=== PATIENT | female | born 1945 | race Caucasian/White ===

== ENCOUNTER 2017-05-10 09:21 | Emergency (ER) | payer MEDICARE ==
[~2017-05-10] VITALS: Ht 160 cm; Wt 79.5 kg
[~2017-05-10 09:21] MED LIST: BENA25TA3 PO; HYDR25TA5 PO; LOSA100T PO; ROSU20 PO
[2017-05-10 09:23] VITALS: BP 169/87; PULSE 94; RESP 20; TEMP 98.7; O2SAT 95
[2017-05-10] MEDS ORDERED: OLIV250C (09:36)
[2017-05-10] MEDS ORDERED: CALC1TAB87 PO (09:37)
[2017-05-10] MEDS ORDERED: FISHCAP4 PO (09:37)
[2017-05-10] MEDS ORDERED: VITA500T49 PO (09:37)
--- NOTE | 2017-05-10 10:26 | PD ---
HPI Chief Complaint: Injury Time Seen by Provider: 10:20 Travel History International Travel<30 days: No Contact w/Intl Traveler<30days: No Traveled to known affect area: No History of Present Illness HPI 71-year-old female complains of left low leg pain and left foot pain. Patient states that she fell and twisted the left low leg and left foot yesterday. Patient denies any other injury. Patient states the pain is sharp pain localized to the dorsal aspect lateral aspect of the left foot and left low leg. Patient denies any pain radiation. Patient states that the pain is worse weightbearing. On a scale of 1-10 the pain is a 7. PFSH Past Medical History Cancer: No Cardiovascular Problems: No Diabetes: No Endocrine: No Genitourinary: No Hepatitis: No Hiatal Hernia: No Hypertension: Yes Immune Disorder: No Musculoskeletal: Yes (BONE SPUR SCIATICA (RIGHT HIP PAIN)) Neurologic: Yes (SPINA MENINGITIS (2 YEARS OLD) CAUSES DIFFICULTY USING STAIRS) Psychiatric: No Reproductive: No Respiratory: Yes (ASTHMA (WEATHER INDUCED)) Thyroid Disease: No Tetanus Vaccination: < 5 Years Influenza Vaccination: Yes ?: Not Past Surgical History Abdominal Surgery: No AICD: No Cardiac Surgery: No Ear Surgery: No Endocrine Surgery: No Eye Surgery: No Genitourinary Surgery: No Gynecologic Surgery: Yes (PARTIAL HYSTERECTOMY) Hysterectomy: Yes Joint Replacement: No Oral Surgery: No Pacemaker: No Thoracic Surgery: No Social History Alcohol Use: Yes (occ) Tobacco Use: No Substance Use: No Allergies-Medications (Allergen,Severity, Reaction): Coded Allergies: Sulfa (Verified Allergy, Severe, Rash, 05/10/17) Reported Meds & Prescriptions Reported Meds & Active Scripts Active [place] (Hydrocodone-Acetaminophen) 5-325 mg Tab 1 Tab PO Q6H PRN Reported Vitamin B12 (Cyanocobalamin) 500 Mcg Tab 500 Mcg PO DAILY Fish Oil + D3 (Fish Oil-Cholecalciferol) 1,200-1,000 Mg-Unit Cap 1 Cap PO DAILY Calcium 600 with Vitamin D (Calcium Carbonate-Cholecalciferol) 600-400 mg-Unit Tab 1 Tab PO DAILY Biscoe Odanah Extract (Biscoe Odanah (Tommy Europaea)) 250 Mg Cap Review of Systems General / Constitutional: No: Fever Eyes: No: Visual changes HENT: No: Headaches Cardiovascular: No: Chest Pain or Discomfort Respiratory: No: Shortness of Breath Gastrointestinal: No: Abdominal Pain Genitourinary: No: Dysuria Musculoskeletal: Positive: Pain Skin: No Rash Neurologic: No: Weakness Psychiatric: No: Depression Endocrine: No: Polydipsia Hematologic/Lymphatic: No: Easy Bruising Physical Exam Narrative GENERAL: Well-nourished, well-developed patient. SKIN: Focused skin assessment warm/dry. HEAD: Normocephalic. EYES: No scleral icterus. No injection or drainage. NECK: Supple, trachea midline. No JVD or lymphadenopathy. CARDIOVASCULAR: Regular rate and rhythm without murmurs, gallops, or rubs. RESPIRATORY: Breath sounds equal bilaterally. No accessory muscle use. GASTROINTESTINAL: Abdomen soft, non-tender, nondistended. MUSCULOSKELETAL: No cyanosis, or edema. BACK: Nontender without obvious deformity. No CVA tenderness. Patient has mild tenderness on palpation lateral aspect left low leg. No tenderness on palpation medial or lateral malleolus. Patient has soft tissue swelling tenderness or some aspect of the left foot including fourth and fifth metatarsal area. Full range of motion of the toes. Data Data Last Documented VS Vital Signs Date Time Temp Pulse Resp B/P Pulse Ox O2 Delivery O2 Flow Rate FiO2 05/10/17 11:12 72 97 Room Air 05/10/17 09:23 98.7 20 169/87 Orders Foot, Complete ([id number]) (05/10/17 10:23) Tibia/Fibula (Ap/Lat) (05/10/17 10:23) Splint Or Brace Apply/Monitor (05/10/17 11:19) MDM Medical Decision Making Medical Screen Exam Complete: Yes Emergency Medical Condition: Yes Interpretation(s) 11:20 AM. X-ray of left tib-fib and left foot shows fracture the base of fifth metatarsal. Differential Diagnosis Differential diagnosis including sprain, fracture, dislocation. Narrative Course 71-year-old female with left low leg and left foot injury. Diagnosis Primary Impression: Fracture of base of fifth metatarsal bone of left foot Qualified Code: S92.352A - Fracture of base of fifth metatarsal bone of left foot, closed, initial encounter Patient Instructions: General Instructions Additional Instructions: Keep legs elevated. Take medication as needed for pain. Follow-up with forex trader or orthopedist. Med/Other Pt SpecificInfo: Prescription(s) given Scripts Hydrocodone-Acetaminophen ([place])5-325 mg Tab1 Tab PO Q6H PRN (PAIN) #30 TAB Prov:Carlos Dolan MD 05/10/17 Disposition: 01 DISCHARGE HOME Condition: Stable Carlos Dolan MD May 10, 2017 10:26
[2017-05-10 11:12] VITALS: PULSE 72; O2SAT 97
--- NOTE | 2017-05-10 11:20 | RADRPT ---
EXAM DATE/TIME: 05/10/2017 10:49 [facility] COMPARISON: No previous studies available for comparison. INDICATIONS : Left foot pain across heads of metatarsals post fall. MEDICAL HISTORY : None. SURGICAL HISTORY : None. ENCOUNTER: Initial ACUITY: 1 day PAIN SCORE: 8/10 LOCATION: Left Foot FINDINGS: There is an acute fracture involving the base of the left fifth metatarsal. Tiny plantar and Achilles calcaneal spurs are noted. Mild degenerative changes are noted involving the left first metatarsopha langeal joint. CONCLUSION: 1. Acute fracture involving the base of the left fifth metatarsal. 2. Tiny plantar and Achilles calcaneal spurs. 3. Mild degenerative changes involving the left first metatarsophalangeal joint. Ry Urias MD on May 10, 2017 at 11:17 Board Certified Radiologist. This report was verified electronically.
[2017-05-10] MEDS ORDERED: NORC5TAB PO (11:22)
--- NOTE | 2017-05-10 11:52 | RADRPT ---
EXAM DATE/TIME: 05/10/2017 10:55 [facility] COMPARISON: No previous studies available for comparison. INDICATIONS : Left distal tibia pain post fall. MEDICAL HISTORY : None. SURGICAL HISTORY : None. ENCOUNTER: Initial ACUITY: 1 day PAIN SCORE: 8/10 LOCATION: Left Tibia FINDINGS: Moderate osteoarthritis is noted involving the femoral tibial joint. There is no acute fracture or d islocation of the tibia or fibula. Minimal spurring is noted involving the medial malleolus. Modera te osteoarthritis involving the patellofemoral joint also. CONCLUSION: 1. 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 2. Spurring involving the medial malleolus. 3. No acute fracture or dislocation. Ry Urias MD on May 10, 2017 at 11:20 Board Certified Radiologist. This report was verified electronically.
== END 2017-05-10 11:58 | disposition home or self-care (01) ==
LOC: NEPD 09:21
DX: S92.355A Nondisplaced fracture of fifth metatarsal bone, left foot, initial encounter for closed fracture (principal); W18.30XA Fall on same level, unspecified, initial encounter; Y93.9 Activity, unspecified; Y92.9 Unspecified place or not applicable; I10 Essential (primary) hypertension
CPT/HCPCS: 29515; 73590; 73630

== ENCOUNTER → 2017-11-15 | Outpatient (CLI) | payer MEDICARE ==
[~2017-11-15] MED LIST changes: -BENA25TA3 PO; +CALC1TAB87 PO; +CO Q10CA PO; +FISHCAP4 PO; -HYDR25TA5 PO; -LOSA100T PO; +NORC5TAB PO; +OLIV250C; -ROSU20 PO; +VITA500T35 PO
[2017-11-15 09:35] LABS: BLOOD, URINE NEG (NEG); GLUCOSE,URINE NEG (NEG); KETONE, URINE NEG (NEG); MUCUS URINE FEW /lpf (OCC); NITRITE,URINE NEG (NEG); SQUAMOUS EPITHELIAL CELL URINE <1 /hpf (0-5); URINE COLOR YELLOW (YELLW/STRAW)
[2017-11-15 09:37] LABS: COMMENT (UR) CATH-CULT NOT IND; CULTURE IF INDICATED CATH CULTURE NOT IND
[2017-11-15 09:39] LABS: ALKALINE PHOSPHATASE 61 U/L (45-117); ALT (GPT) 24 U/L (10-53); TOTAL BILIRUBIN ADULT 0.4 MG/DL (0.2-1.0)
--- NOTE | 2017-11-15 09:41 | RADRPT ---
EXAM DATE/TIME: 11/15/2017 09:21 [facility] COMPARISON: No previous studies available for comparison. INDICATIONS : Evaluate for pneumonia, pneumothorax or communicable disease. MEDICAL HISTORY : None. SURGICAL HISTORY : None. ENCOUNTER: Initial ACUITY: 1 day PAIN SCORE: 0/10 LOCATION: Bilateral chest FINDINGS: PA and lateral views of the chest demonstrate the lungs to be symmetrically aerated without evidence of mass, infiltrate or effusion. Linear atelectatic changes or scarring in the left lingula. Granulo matous type calcification in the anterior perihilar distribution of a lower segment of the left upper lobe. The cardiomediastinal contours are unremarkable. Osseous structures are intact. CONCLUSION: 1. Linear atelectasis/scar in the left lingula. Lungs are otherwise clear of acute infiltrate. 2. Old granulomatous type calcification in an anterior perihilar distribution of the left upper lobe. Juan Greene MD on November 15, 2017 at 9:37 Board Certified Radiologist. This report was verified electronically.
[2017-11-15 09:49] LABS: ANION GAP 8 MEQ/L (5-15); AST (GOT) 24 U/L (15-37); BICARBONATE 24.8 MEQ/L (21.0-32.0); BLOOD UREA NITROGEN 17 MG/DL (7-18); CHLORIDE 107 MEQ/L (98-107); GLOMERULAR FILTRATION RATE 72 ML/MIN (>89); GLUCOSE,FASTING 112 MG/DL (74-99); POTASSIUM 4.2 MEQ/L (3.5-5.1); SODIUM (NA) 140 MEQ/L (136-145)
[2017-11-15 10:00] LABS: HEMATOCRIT 45.2 % (35.0-46.0); MEAN CELL VOLUME 80.1 FL (80.0-100.0); MEAN CORPUSCULAR HEMOGLOBIN 26.6 PG (27.0-34.0); MEAN CORPUSCULAR HGB CONC 33.1 % (32.0-36.0); PLATELET COUNT 334 TH/MM3 (150-450); RED BLOOD COUNT 5.63 MIL/MM3 (4.00-5.30); RED CELL DISTRIBUTION WIDTH 15.3 % (11.6-17.2); REVIEW FLAG FINAL; WHITE BLOOD COUNT 8.4 TH/MM3 (4.0-11.0)
[2017-11-15 10:09] LABS: APTT (PATIENT) 24.7 SEC (24.3-30.1); PROTHROMBIN TIME - PATIENT 10.4 SEC (9.8-11.6)
--- NOTE | 2017-11-15 16:31 | EKG ---
Date Performed: 11/15/2017 Time Performed: 08:36:54 PTAGE: 72 years EKG: Sinus rhythm Leftward axis Inferior infarct - age undetermined Anterior ST-T changes are nonspecific Low QRS volt ages in precordial leads Abnormal ECG NO PREVIOUS TRACING DOCTOR: Breanna Faria Interpretating Date/Time 11/15/2017 16:30:13
== END ==
LOC: CPRE 07:58
PROVIDERS: ATTEND Surgery
DX: Z01.810 Encounter for preprocedural cardiovascular examination (principal); Z01.811 Encounter for preprocedural respiratory examination; Z01.812 Encounter for preprocedural laboratory examination; Z01.818 Encounter for other preprocedural examination; R94.31 Abnormal electrocardiogram [ECG] [EKG]
CPT/HCPCS: 36415; 71020; 80053; 81001; 85027; 85610; 85730; 93005

== ENCOUNTER 2017-11-23 08:21 | Inpatient (IN) | payer MEDICARE ==
--- NOTE | 2017-11-18 20:44 | MH ---
cc: Tami GABRIEL DATE OF ADMISSION 11/23/2017 ADMISSION DIAGNOSIS Osteoarthritic degeneration right knee now being admitted for right total knee arthroplasty. ADMISSION HISTORY AND PHYSICAL This pleasant 72-year old female is being admitted today for right total knee arthroplasty due to severe painful osteoarthritic degeneration right knee. OTHER PAST HISTORY History of hypertension and she takes Lipitor, Hydrochlorothiazide 12.5 mg tablet a day. She takes ibuprofen stopped before surgery. PAST SURGICAL HISTORY 1. Hysterectomy 2. Tonsillectomy. REVIEW OF SYSTEMS Noncontributory. FAMILY HISTORY Noncontributory. SOCIAL HISTORY She does not smoke or drink. ALLERGIES No known allergies. PHYSICAL EXAMINATION We find a 72-year female well-developed, well-nourished x3 complaining of pain in her right knee. VITAL SIGNS: Blood pressure 122/70, pulse 73 and regular, respirations 16, temperature 97.8, pulse oximetry 92% on room air HEENT: Eyes - PERRLA, EOMI. Ears, nose, mouth clear. NECK: Supple. LUNGS: Clear HEART: Regular rate and rhythm. ABDOMEN: Soft. Positive bowel sounds, nontender. EXTREMITIES: Reveals right knee to be tender, crepitance on range of motion. She is neurovascularly intact to her toes. IMPRESSION AND PLAN Severe painful with osteoarthritic degeneration right knee. PLAN Admission right total knee arthroplasty today. The patient given prescription for postoperative pain and anticoagulation control in the office, plans on going home after stay in the hospital. She states she cannot take [place]. She gets reaction to [place] but can take Percocet. MD LIAM Aviles/ /5:27 PM /8:12 PM
[~2017-11-23] VITALS: Ht 160 cm; Wt 106.0 kg
[~2017-11-23 08:21] MED LIST changes: -FISHCAP4 PO
[2017-11-23] MEDS ORDERED: LACTATED RINGER'S 1000 ML IV PRN (09:00)
[2017-11-23] MEDS ORDERED: SODIUM CHLORID 0.9% 500 ML IV PRN (09:00)
[2017-11-23] MEDS ORDERED: METOPROLOL TARTRATE 25 MG TAB PO PRN (09:00)
[2017-11-23] MEDS ORDERED: CHLORHEXIDINE GLUCONATE 2 % 1 PACK (2 CLOTHS) TOPICAL PRN (09:00)
[2017-11-23] MEDS ORDERED: VANCOMYCIN 1000 MG/NS 250 ML (for <70 kg) IV SCH ×2 (09:00)
[2017-11-23] MEDS ORDERED: POVIDONE IODINE 5% (ANTISEPSIS KIT) 4 APPLICATIONS EACH NARE PRN (09:00)
[2017-11-23] MEDS ORDERED: CHLORHEXIDINE GLUCONATE 4% SOLN 120 ML BTL TOPICAL SCH (09:00)
[2017-11-23] MEDS ORDERED: ceFAZolin 2 GM PREMIX 50 ML IV SCH (09:00)
[2017-11-23] MEDS ORDERED: EXPAREL PERI-ARTICULAR INJECTION (TOTAL VOL. 120 ML) P-ARTICULR SCH ×2 (10:00)
[2017-11-23] MEDS ORDERED: DEXAMETHASONE SOD PHOS 20 MG/5 ML VIAL IV SCH (10:00)
[2017-11-23] MEDS ORDERED: ceFAZolin INJ 1,000 MG VIAL ONE (10:30)
[2017-11-23] MEDS ORDERED: diphenhydrAMINE HCL 50 MG/ML VIAL IV PUSH PRN (11:00)
[2017-11-23] MEDS ORDERED: ONDANSETRON HCL 4 MG/2 ML VIAL IVP PRN (11:00)
[2017-11-23] MEDS ORDERED: TEMAZEPAM 15 MG CAP PO PRN (11:00)
[2017-11-23] MEDS ORDERED: TRANEXAMIC ACID INJ 0 MG in SODIUM CHLORIDE 0.9% INJ 100 ML IV SCH (11:00)
[2017-11-23] MEDS ORDERED: NALOXONE HCL 0.4 MG/ML AMP IV PUSH PRN (11:00)
[2017-11-23] MEDS ORDERED: Post-op Orders (for Pharmacy) XX ONE (11:00)
[2017-11-23] MEDS ORDERED: ACETAMINOPHEN 325 MG TAB PO PRN (11:00)
[2017-11-23] MEDS ORDERED: oxyCODONE/ACETAMINOPHEN 5 MG/325 MG TAB PO PRN (11:00)
--- NOTE | 2017-11-23 11:10 | HHI.FF ---
Face to Face Verification Diagnosis: (1) Status post total right knee replacement Physical Therapy Gait training Knee: Total knee, Protocol: Right, Full weight bearing Canvas Knee Splint: When in bed & 2 pillows btw thighs Nursing RN: 3 days/week x 2 weeks Nursing: Dressing changes Dressing Changes: Daily dressing change, 4x4s, Gauze, Paper tape I have seen patient Joselin Rojas on 11/23/17. My clinical findings support the need for the requested home health care services because: Limited ability to care for self High risk of falls I certify that my clinical findings support that this patient is homebound because: Unsteady gait/balance Tami Armenta MD Nov 23, 2017 11:10
[2017-11-23] MEDS ORDERED: CPMMACHINE (11:12)
[2017-11-23] MEDS ORDERED: WALKER WHEELS/F1 MIS (11:12)
[2017-11-23] MEDS ORDERED: ADJUSTABLE COMM1 MIS (11:12)
[2017-11-23] MEDS ORDERED: EPINEPHrine HCL PF/SF (1:1000) 1 MG/ML AMP I-OCULAR ONE (11:46)
[2017-11-23] MEDS ORDERED: LACTATED RINGER'S 1000 ML INJ 1,000 ML IV ONE (12:00)
[2017-11-23] MEDS ORDERED: PROPOFOL 200 MG/20 ML AMP IV ONE (12:00)
[2017-11-23] MEDS ORDERED: PHENYLEPH/NS 1000 MCG/10 ML SYR IV ONE (12:00)
[2017-11-23] MEDS ORDERED: ONDANSETRON HCL 4 MG/2 ML VIAL IV ONE (12:00)
[2017-11-23] MEDS: TRANEXAMIC ACID INJ 890 MG in SODIUM CHLORIDE 0.9% INJ 100 ML IV SCH ×2 (12:20→15:25)
[2017-11-23] MEDS ORDERED: TRANEXAMIC ACID INJ 890 MG in SODIUM CHLORIDE 0.9% INJ 100 ML IV SCH (13:00)
[2017-11-23] MEDS ORDERED: MORPHINE SULFATE 2 MG/ML INJ IV PUSH PRN (13:45)
[2017-11-23] MEDS ORDERED: DO NOT ADM ANY ANTICOAGULANT DRUGS PRN (15:15)
[2017-11-23] MEDS: LACTATED RINGER'S 1000 ML INJ 1,000 ML IV SCH (15:24)
[2017-11-23 16:00] VITALS: BP 112/66; PULSE 82; RESP 18; TEMP 98.7; O2SAT 92
--- NOTE | 2017-11-23 16:16 | RADRPT ---
EXAM DATE/TIME: 11/23/2017 15:22 [facility] COMPARISON: No previous studies available for comparison. INDICATIONS : Post op. Right total knee replacement. MEDICAL HISTORY : None. SURGICAL HISTORY : Right total knee replacement. ENCOUNTER: Initial ACUITY: 1 day PAIN SCORE: 0/10 LOCATION: Right knee. FINDINGS: Postsurgical changes following knee replacement are noted. Prosthetic components are well seated and in satisfactory alignment. There is no evidence of acute bony abnormalities. CONCLUSION: Satisfactory postoperative appearance of the right knee following joint replacement. Montez Morales MD on November 23, 2017 at 16:14 Board Certified Radiologist. This report was verified electronically.
--- NOTE | 2017-11-23 17:01 | MP ---
cc: Tami GABRIEL DATE OF SURGERY 11/23/17 PREOPERATIVE DIAGNOSIS Osteoarthritic degeneration right knee. POSTOPERATIVE DIAGNOSIS Osteoarthritic degeneration right knee. SURGERY PERFORMED Right total knee arthroplasty using consensus components size four femur one tibia and one patella with a size 16 standard insert and two batches of DePuy cement SURGEON Dr. Houston Gabriel CHANGE MANAGEMENT FACILITATOR MERLENE Grover ANESTHESIA General intubation and block PROCEDURE IN DETAIL After successful induction of anesthesia, the patient is placed on the operating room table in the supine position. The knee is prepped and draped in the usual manner. A tourniquet is inflated at the upper thigh and set to 300 mmHg pressure after exsanguination of the lower extremity. A longitudinal incision is made extending from 3 inches proximal to the superior pole of the patella, across the patella in longitudinal fashion, and down past the insertion of the tibial tubercle into the proximal tibia. The incision is carried down through subcutaneous tissue along the medial aspect of the patella and retinaculum, down through the capsule to expose the knee joint. The patella and patellar tendon are freed up enough to allow the patella to be inverted and retracted off the lateral side of the knee joint. The knee joint is left exposed. Small osteophytes are removed. All soft tissue is removed to allow proper position of the femoral and tibial cutting jig guide. The first femoral jig is then inserted along the distal end of the femur after first measuring to decide whether this is a small, medium, or large component. The notch is then drilled and the tibial cutting guide inserted into the femoral cutting guide, along with the ankle brace to allow for proper measurement of the tibial cutting surface that needed to be resected. Pins are inserted into the tibial cutting jig and femoral cutting jig to hold them in place. An oscillating saw is then used to resect the surface of the tibia. The surface of the tibia is then completely removed using sharp and blunt dissection. The anterior and posterior cuts of the femur are then made as well using an oscillating saw through the cutting guide. All guides are then removed and the varus/valgus angulation cutting guide applied to the femur for proper measurement of the proper amount of valgus. The anterior cutting guide for the femur is then inserted at the anterior femoral cuts made. Next, the first block trial is inserted into the femur to allow for proper condyle drill holes to be made which are then made followed by removal of the bone between the condyles using an oscillating saw as well as the bone removed at the most posterior surface of the condyle. After this, this guide is removed and the chamfer cuts made using the chamfer cutting guide from both anterior and posterior. Next, the femoral trial is then inserted, the tibial surface reflected anterior to expose the tibial surface and a tibial stem guide is inserted after first measuring for a standard, standard plus, large, or large plus surface to be used. After the stem is impacted the trial tibial surface is applied followed by the trial meniscal components. After full range of motion is found with the appropriate length meniscal components varying the patella is prepared by resecting the posterior aspect of the patella using an oscillating saw, inserting a trial. The trial is then removed and the cruciate cutting guide applied using the bur to cut the cruciate cuts. After cruciate cuts are made all trials are removed. The wound is irrigated copiously with antibiotic solution and Water Pik and the actual components inserted into place using the aforementioned components. After the cement has hardened and the components are found to have full range of motion with no instability, the tourniquet is deflated, total tourniquet time being 59 minutes at 300 mmHg pressure. The medial collateral ligament instability was repaired using interrupted #2 FiberWire to make a very stable knee. The deep fascia was approximated with 60 mL of Exparel used around the knee joint for extra pain control. The deep fascia approximated with running #2 quill, subcutaneous tissue approximated using interrupted running 2-0 and 3-0 Monocryl sutures. Steri-Strips and sterile dressing and knee immobilizer. No drain utilized. Estimated blood loss 50 mL. Sponge and suture count correct. The patient tolerated the procedure well, left the operating room in satisfactory condition. MERLENE Cortes, was present during the entire procedure to include patient positioning and the procedure. The medical necessity of the nurse practitioner psychology assistant was indicated in this case due to the surgical complexity of the case itself and, during the surgical case, the surgical resident was working the back table while my surgical services director MERLENE was directly assisting me. JMD LIAM Blank/ /2:00 PM /4:37 PM
--- NOTE | 2017-11-23 17:42 | HHI.PR ---
Immediate Post Op Note Procedure Date: Nov 23, 2017 Pre Op Diagnosis: Osteoarthritic degeneration right knee Post Op Diagnosis: Osteoarthritic degeneration right knee Surgeon: Tami Armenta MD Last Dipper(s): Marily BLUNT Procedure: Right total knee Arthroplasty Specimen(s) removed: none Estimated blood loss: 150 cc Anesthesia: Spinal Drains: None Urinary Output (mLs): 0 (no frazier) Tourniquet time (min at mmHg) 59 mins at 300mm Hg Patient to: PACU Patient Condition: Good Implant/Devices: SEE IMPLANT LOG (if applicable) Date/Time of Procedure: SEE SURGICAL CARE RECORD Marily Ahuja Nov 23, 2017 17:42
[2017-11-23] MEDS: oxyCODONE/ACETAMINOPHEN 5 MG/325 MG TAB PO PRN (17:50)
[2017-11-23 20:10] VITALS: BP 107/60; PULSE 97; RESP 18; TEMP 97.4; O2SAT 93
[2017-11-23 23:48] VITALS: BP 114/62; PULSE 71; RESP 17; TEMP 97.5; O2SAT 94
[2017-11-24] MEDS: oxyCODONE/ACETAMINOPHEN 5 MG/325 MG TAB PO PRN ×5 (00:50→20:37)
[2017-11-24 03:39] VITALS: BP 108/61; PULSE 76; RESP 18; TEMP 96.7; O2SAT 94
[2017-11-24] MEDS: LACTATED RINGER'S 1000 ML INJ 1,000 ML IV SCH ×2 (06:21→12:00)
[2017-11-24 07:15] LABS: HEMATOCRIT 34.6 % (35.0-46.0); HEMOGLOBIN 11.6 GM/DL (11.6-15.3)
[2017-11-24] MEDS: CALCIUM/VITAMIN D 250 MG/125 U TAB PO SCH (07:23)
[2017-11-24] MEDS: CYANOCOBALAMIN 1,000 MCG TAB PO SCH (07:23)
--- NOTE | 2017-11-24 07:31 | PD.ORT.PN ---
Subjective Subjective Remarks Pt painful at present. Objective Vitals Vital Signs Date Time Temp Pulse Resp B/P (MAP) Pulse Ox O2 Delivery O2 Flow Rate FiO2 11/24/17 03:39 96.7 76 18 108/61 (77) 94 11/23/17 23:48 97.5 71 17 114/62 (79) 94 11/23/17 20:10 97.4 97 18 107/60 (76) 93 11/23/17 16:00 98.7 82 18 112/66 (81) 92 11/23/17 15:45 76 16 106/57 (73) 91 Nasal Cannula 2 11/23/17 15:30 77 16 102/55 (71) 91 Nasal Cannula 2 11/23/17 15:15 78 16 107/54 (71) 94 Nasal Cannula 2 11/23/17 15:00 80 16 103/56 (72) 92 Nasal Cannula 2 11/23/17 14:45 82 16 105/54 (71) 93 Nasal Cannula 2 11/23/17 14:40 98.4 84 16 108/55 (72) 92 Nasal Cannula 2 11/23/17 09:45 98.3 75 18 145/75 (98) 96 I/O 11/23/17 11/23/17 11/23/17 11/24/17 11/24/17 11/24/17 07:00 15:00 23:00 07:00 15:00 23:00 Intake Total 1500 ml 880 ml 480 ml Output Total 50 ml Balance 1450 ml 880 ml 480 ml Intake Oral 880 ml 480 ml Other 1500 ml Output Estimated Blood Loss 50 ml # Voids 4 2 # Bowel Movements 0 0 Result Diagram: 11/24/17 0640 Imaging Last 24 hours Impressions Knee X-Ray 11/23/17 1053 Signed Impressions: Service Date/Time: Thursday, November 23, 2017 15:22 - CONCLUSION: Satisfactory postoperative appearance of the right knee following joint replacement. Montez Morales MD Objective Remarks NV intact to toes. No calf tenderness. In bed at present. Assessment & Plan Ortho Post Op Day #: 1 Problem List: Assessment and Plan Ultram for extra breakthrough pain control. OOB, PT, wound care. Home possibly tomorrow with HHC and PT. Tami Armenta MD Nov 24, 2017 07:31
[2017-11-24 08:00] VITALS: BP 86/61; PULSE 70; RESP 18; TEMP 96.8; O2SAT 97
[2017-11-24] MEDS ORDERED: traMADol HCL 50 MG TAB PO PRN (09:00)
[2017-11-24] MEDS ORDERED: COENZYME Q10 PO SCH (09:00)
[2017-11-24 11:09] VITALS: BP 104/62; PULSE 73; RESP 18; TEMP 96.6; O2SAT 98
[2017-11-24] MEDS: APIXABAN 2.5 MG TABLET PO SCH ×3 (14:00→23:00)
[2017-11-24 15:30] VITALS: BP 133/58; PULSE 78; RESP 18; TEMP 97.2; O2SAT 94
[2017-11-24 20:05] VITALS: BP 137/72; PULSE 77; RESP 18; TEMP 98; O2SAT 96
[2017-11-24] MEDS: MULTIVITAMINS/MINERALS THERAPEUTIC TAB PO SCH (20:37)
[2017-11-24] MEDS: DOCUSATE SODIUM 100 MG CAP PO SCH (20:37)
[2017-11-24 21:05] VITALS: O2SAT 97
[2017-11-25] VITALS: BP 144/80; PULSE 90; RESP 20; TEMP 96.4; O2SAT 93
[2017-11-25] MEDS: LACTATED RINGER'S 1000 ML INJ 1,000 ML IV SCH ×2 (00:30→12:20)
[2017-11-25] MEDS: oxyCODONE/ACETAMINOPHEN 5 MG/325 MG TAB PO PRN ×4 (00:35→13:48)
[2017-11-25 06:32] LABS: HEMATOCRIT 36.3 % (35.0-46.0); HEMOGLOBIN 12.1 GM/DL (11.6-15.3)
[2017-11-25 08:00] VITALS: BP 160/81; PULSE 93; RESP 18; TEMP 99.4; O2SAT 93
[2017-11-25] MEDS: DOCUSATE SODIUM 100 MG CAP PO SCH (09:22)
[2017-11-25] MEDS: MULTIVITAMINS/MINERALS THERAPEUTIC TAB PO SCH (09:22)
[2017-11-25] MEDS: CYANOCOBALAMIN 1,000 MCG TAB PO SCH (09:22)
[2017-11-25] MEDS: CALCIUM/VITAMIN D 250 MG/125 U TAB PO SCH (09:22)
[2017-11-25] MEDS: APIXABAN 2.5 MG TABLET PO SCH (09:22)
[2017-11-25] MEDS ORDERED: BACITRACIN OINT 0.9 GM PKT TOP PRN (10:15)
[2017-11-25 10:23] VITALS: RESP 16
--- NOTE | 2017-11-25 12:49 | PD.ORT.PN ---
Subjective Subjective Remarks Pt painful at present but otherwise doing well and ready for dc to home today. Objective Vitals Vital Signs Date Time Temp Pulse Resp B/P (MAP) Pulse Ox O2 Delivery O2 Flow Rate FiO2 11/25/17 10:23 16 11/25/17 08:00 99.4 93 18 160/81 (107) 93 11/25/17 00:00 96.4 90 20 144/80 (101) 93 11/24/17 21:05 97 11/24/17 20:05 98.0 77 18 137/72 (93) 96 11/24/17 15:30 97.2 78 18 133/58 (83) 94 I/O 11/24/17 11/24/17 11/24/17 11/25/17 11/25/17 11/25/17 07:00 15:00 23:00 07:00 15:00 23:00 Intake Total 1120 ml 960 ml 240 ml 240 ml Balance 1120 ml 960 ml 240 ml 240 ml Intake Oral 480 ml 960 ml 240 ml 240 ml IV Total 640 ml # Voids 2 3 1 2 # Bowel Movements 0 0 0 0 Result Diagram: 11/25/17 0614 Imaging Last 24 hours Impressions Knee X-Ray 11/23/17 1053 Signed Impressions: Service Date/Time: Thursday, November 23, 2017 15:22 - CONCLUSION: Satisfactory postoperative appearance of the right knee following joint replacement. Montez Morales MD Objective Remarks NV intact to toes. No calf tenderness. In bed at present. Assessment & Plan Ortho Post Op Day #: 2 Problem List: Assessment and Plan Home today with home health care and physical therapy. Tami Armenta MD Nov 25, 2017 12:49
--- NOTE | 2017-11-25 12:51 | HHI.DS ---
Discharge Summary Admission Date Nov 23, 2017 at 08:21 Discharge Date: Nov 25, 2017 Admitting Diagnosis Osteoarthritic degeneration right knee Diagnosis: (1) Status post total right knee replacement Diagnosis: Principal ICD Codes: Z96.651 - Presence of right artificial knee joint Brief History This is a 72 year old female patient CBC/BMP: 11/25/17 0614 Significant Findings Laboratory Tests Test 11/24/17 06:40 11/25/17 06:14 Hematocrit 34.6 % (35.0-46.0) PE at Discharge NV intact to toes. No calf tenderness. In bed at present. Hospital Course Patient underwent a right total knee arthroplasty on day of admission. She received a course of prophylactic IV antibiotics and within 23 hours started on anticoagulation therapy. She continued to improve tolerating food and fluid well began out of bed with physical therapy and daily wound care. She tolerated by mouth pain meds and was discharged to home with home health care and physical therapy on the second postoperative day in good condition. Pt Condition on Discharge: Good Discharge Disposition: Disch w/ Home Health Serv Discharge Instructions Diet Instructions: As Tolerated, No Restrictions Activities You Can Perform: Full Weight Bearing, Shower Only-No Bath Activities to Avoid: Bathing, Driving Tami Armenta MD Nov 25, 2017 12:51
== END 2017-11-25 16:21 | disposition home health service (06) | DRG 470 ==
LOC: HSDI 08:21 → N06B 16:19
PROVIDERS: ADMIT Surgery; ATTEND Surgery
PROC: 3E0T3BZ Introduction of Anesthetic Agent into Peripheral Nerves and Plexi, Percutaneous Approach (ICD-10-PCS; 2017-11-23)
PROC: 0SRC0J9 Replacement of Right Knee Joint with Synthetic Substitute, Cemented, Open Approach (ICD-10-PCS; principal; 2017-11-23 11:49)
DX: M17.11 Unilateral primary osteoarthritis, right knee (principal); Z68.41 Body mass index [BMI] 40.0-44.9, adult; I10 Essential (primary) hypertension; M25.761 Osteophyte, right knee; E78.5 Hyperlipidemia, unspecified; E66.9 Obesity, unspecified
CPT/HCPCS: 73560; 85014; 85018; 86850; 86900; 86901; 94150; C1776; C9290; J0171; J0690; J2270; J2370; J2405; J3370; J7050; J7120; L1830